=== PATIENT | female | born 1965 | race African-American/Black ===

== ENCOUNTER 2018-11-10 09:00 | Emergency (ER) | payer OTHER ==
[~2018-11-10] VITALS: Ht 167.6 cm; Wt 49.9 kg
[2018-11-10] MEDS ORDERED: LISINOPRIL5 MG PO (09:10)
[2018-11-10] MEDS ORDERED: HYDROCHLOROTHIA25 M2 PO (09:10)
[2018-11-10] MEDS ORDERED: SINGULAIR 10 MG10 M1 PO (09:10)
[2018-11-10] MEDS ORDERED: LEXAPRO 10 MG T10 M1 PO (09:11)
[2018-11-10] MEDS ORDERED: PRAVACHOL40 MG PO (09:11)
[2018-11-10] MEDS ORDERED: VISTARIL 25 MG25 M1 PO (09:11)
[2018-11-10] MEDS ORDERED: VENTOLIN HFA 1818 GM INH (09:11)
[2018-11-10] MEDS ORDERED: COLACE100 MG PO (09:11)
[2018-11-10] MEDS ORDERED: ACETAMINOPHEN-1 EAC1 PO (09:12)
[2018-11-10 09:18] LABS: ABSOLUTE NEUTROPHILS 4.2 thou/uL (1.4-8.2); BASOPHILS 1.4 % (0.0-2.0); EOSINOPHILS 1.5 % (0.0-3.0); HEMATOCRIT 42.2 % (37.0-47.0); HEMOGLOBIN 14.1 gm/dL (12.0-15.0); LYMPHOCYTES 38.4 % (24.0-44.0); MCH 28.8 pg (26.0-34.0); MCHC 33.4 g/dL (28.0-37.0); MCV 86.1 fL (80.0-100.0); MONOCYTES 5.8 % (1.0-8.0); PLATELET COUNT 326 thou/uL (150-400); POLYS 52.9 % (36.0-66.0); RDW 13.4 % (10.5-14.5); WBC 7.9 thou/uL (4.0-11.0)
[2018-11-10 09:27] LABS: ANION GAP 10 mmol/L (7-16); BUN 9 mg/dL (7-18); CALCIUM 9.4 mg/dL (8.5-10.1); CHLORIDE 103 mmol/L (98-107); CO2 28 mmol/L (21-32); CREATININE 0.9 mg/dL (0.6-1.0); GLUCOSE 102 mg/dL (74-106); POTASSIUM 3.4 mmol/L (3.5-5.1); SODIUM 141 mmol/L (136-145)
[2018-11-10 09:37] LABS: ALBUMIN 3.6 g/dL (3.4-5.0); SGOT 20 U/L (15-37); SGPT 24 U/L (30-65); TOTAL BILIRUBIN 0.3 mg/dL (<0.1-1.0); TOTAL PROTEIN 7.8 g/dL (6.4-8.2); TROPONIN-I <0.06 ng/mL (<0.06)
[2018-11-10 10:10] LABS: URINE BILIRUBIN NEGATIVE (Negative); URINE BLOOD NEGATIVE (Negative); URINE CLARITY CLEAR; URINE COLOR YELLOW; URINE GLUCOSE-RANDOM* TRACE (Negative); URINE KETONES NEGATIVE (Negative); URINE LEUKOCYTES-REFLEX NEGATIVE (Negative); URINE NITRITE-REFLEX NEGATIVE (Negative); URINE PROTEIN (DIPSTICK) NEGATIVE (Negative); URINE UROBILINOGEN 0.2 E.U./dl (0.2-1.0)
--- NOTE | 2018-11-10 11:00 | EKG ---
[facility] [place] [address] ELECTROCARDIOGRAM REPORT Name: ANEUDY SHERWOOD Room #: MILE Maravilla#: [id number] Admission: 11/10/18 Attend Phys: Discharge: Date of : 69 Report #: [id number] THIS REPORT FOR: //name// [facility] ED Test Date: 2018-11-10 Test Time: 09:01:11 Pat Name: ANEUDY SHERWOOD Department: Room: Gender: F [employer]ospace Mechanic: ROLANDO : 1965 Requested By: Heavenly Rosa Order Number: [id number] MD: Ariel Padilla Measurements Intervals [place] Rate: 85 P: 47 OK: 204 QRS: 32 QRSD: 85 T: 58 QT: 382 QTc: 455 Interpretive Statements Sinus rhythm Normal tracing Baseline wander in lead(s) V4 No previous ECG available for comparison Electronically Signed On 11-10-2018 10:59:54 CDT by Ariel Padilla [email or web address] <ELECTRONICALLY SIGNED> By: Ariel Padilla MD, [facility] 11/10/18 1059 0901 0901 Ariel Padilla MD, FACC /EPI
[2018-11-10 11:27] VITALS: BP 162/99
[2018-11-10] MEDS ORDERED: KRISTALOSE20 GM PO (11:28)
== END 2018-11-10 11:27 | disposition home or self-care (01) ==
LOC: ER 09:00
PROVIDERS: Emergency Medicine
DX: K59.00 Constipation, unspecified (principal); R06.00 Dyspnea, unspecified; R10.9 Unspecified abdominal pain; I10 Essential (primary) hypertension; G89.29 Other chronic pain; M54.5 Low back pain; Z86.711 Personal history of pulmonary embolism; Z88.6 Allergy status to analgesic agent